=== PATIENT | male | born 1990 | race Caucasian/White ===

== ENCOUNTER 2017-06-04 09:06 | Emergency (ER) | payer BC ==
[2017-06-04 09:18] VITALS: BP 117/83
--- NOTE | 2017-06-04 09:45 | EDM.PDOC ---
ED HPI GENERAL MEDICAL PROBLEM - General Chief Complaint: Flank Pain Stated Complaint: KIDNEY PAIN Time Seen by Provider: 06/04/17 09:20 Source of Information: Reports: Patient, RN Notes Reviewed - History of Present Illness INITIAL COMMENTS - FREE TEXT/NARRATIVE: 27-year-old male comes in with left back pain. He's been having intermittent more mild discomfort off and on left back for about 6 months. This became quite intense last evening and early this morning. States at times he was getting "spasms. The pain stayed primarily in the left low back and also some radiation to the left flank. No radiation to the abdomen or groin. No nausea vomiting fever or chills. He's had no voiding symptoms. He does do a lot of lifting with his work. 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 Left Flank Pain Score (Numeric/FACES): 7 - Related Data Allergies Allergy/AdvReac Type Severity Reaction Status Date / Time No Known Allergies Allergy Verified 06/04/17 09:18 Home Meds: Home Meds . [No Known Home Meds] 06/04/17 [History] Cyclobenzaprine [Flexeril] 10 mg PO BEDTIME PRN #10 tablet 06/04/17 [Rx] Naproxen [Naprosyn] 500 mg PO Q12HR #14 tablet 06/04/17 [Rx] Past Medical History - Past Surgical History Other Musculoskeletal Surgeries/Procedures:: ACL right knee 1 year ago Social & Family History - Tobacco Use Smoking Status *Q: Current Every Day Smoker Years of Tobacco use: 5 Packs/Tins Daily: 0.5 Used Tobacco, but Quit: No Second Hand Smoke Exposure: No - Caffeine Use Caffeine Use: Reports: Coffee - Alcohol Use Days Per Week of Alcohol Use: 2 Number of Drinks Per Day: 8 Total Drinks Per Week: 16 - Recreational Drug Use Recreational Drug Use: No Drug Use in Last 12 Months: Yes Recreational Drug Type: Reports: Marijuana/Hashish Other Recreational Drug Type: marijuana use 3 weeks ago ED ROS GENERAL - Review of Systems Review Of Systems: See Below Constitutional: Denies: Fever, Chills, Diaphoresis HEENT: Reports: No Symptoms Respiratory: Denies: Shortness of Breath, Pleuritic Chest Pain Cardiovascular: Denies: Chest Pain GI/Abdominal: Denies: Abdominal Pain, Nausea, Vomiting : Reports: No Symptoms Musculoskeletal: Reports: Back Pain. Denies: Leg Pain (Left low back), Joint Pain Skin: Reports: No Symptoms Neurological: Denies: Numbness, Tingling ED EXAM, RENAL/ - Physical Exam Exam: See Below General Appearance: Alert, No Apparent Distress Throat/Mouth: Normal Inspection, Normal Oropharynx Head: Atraumatic Neck: Supple, Full Range of Motion Respiratory/Chest: No Respiratory Distress, Lungs Clear, Normal Breath Sounds Cardiovascular: Regular Rate, Rhythm Back Exam: Other (There is tenderness of the left low back). No: CVA Tenderness (L), CVA Tenderness (R) Extremities: Normal Inspection, Normal Range of Motion, Other (No pain with straight leg raising) Neurological: Alert, Oriented, No Motor/Sensory Deficits Skin Exam: Warm, Dry, Normal Color, No Rash Course - Vital Signs Last Recorded V/S: Last Vital Signs Temp 98.0 F 06/04/17 09:13 Pulse 97 06/04/17 09:13 Resp 18 06/04/17 09:13 BP 117/83 06/04/17 09:13 Pulse Ox 96 06/04/17 09:13 - Orders/Labs/Meds Labs: Laboratory Tests 06/04/17 Range/Units 09:25 Urine Color Yellow (Yellow) Urine Appearance Clear (Clear) Urine pH 6.0 (5.0-8.0) Ur Specific [place] 1.020 (1.005-1.030) Urine Protein Negative (Negative) Urine Glucose (UA) Negative (Negative) Urine Ketones Negative (Negative) Urine Occult Blood Negative (Negative) Urine Nitrite Negative (Negative) Urine Bilirubin Negative (Negative) Urine Urobilinogen 0.2 (0.2-1.0) Ur Leukocyte Esterase Negative (Negative) Urine RBC 0-5 (0-5) /hpf Urine WBC 0-5 (0-5) /hpf Ur Epithelial Cells 0-5 (0-5) /hpf Urine Bacteria Not seen (FEW) /hpf Urine Mucus Not seen (FEW) /hpf - Re-Assessments/Exams Free Text/Narrative Re-Assessment/Exam: 06/04/17 17:25 Urine came back negative for hematuria. The pain does not radiate to the left abdomen or groin, just to the left flank and left buttock area. Do feel this is musculoskeletal and not a kidney stone. Renal CT will not be done. Patient is comfortable with that. Also of note the back discomfort is worse with certain types of motion which also would strongly rule against this being a kidney stone. Departure - Departure Time of Disposition: 10:10 Disposition: Home, Self-Care 01 Condition: Fair Clinical Impression: Low back strain Qualifiers: Encounter type: initial encounter Qualified Code(s): S39.012A - Strain of muscle, fascia and tendon of lower back, initial encounter - Discharge Information Prescriptions: Naproxen [Naprosyn] 500 mg PO Q12HR #14 tablet Cyclobenzaprine [Flexeril] 10 mg PO BEDTIME PRN #10 tablet PRN Reason: Spasms Instructions: Low Back Strain With Rehab-SportsMed Referrals: PCP,None [Primary Care Provider] - Forms: ED Department Discharge Additional Instructions: Try avoid heavy lifting as best you can, Naprosyn 500 mg twice daily for pain and inflammation, you may take Tylenol in between doses if needed for extra pain relief, Flexeril which is a muscle relaxant at night if needed for severe discomfort or spasms, follow-up clinic as needed if symptoms not resolving, return to ED if symptoms worsening in any way
== END 2017-06-04 10:25 | disposition home or self-care (01) ==
LOC: JD.ED 09:06
DX: S39.012A Strain of muscle, fascia and tendon of lower back, initial encounter (principal); F17.210 Nicotine dependence, cigarettes, uncomplicated; Z98.890 Other specified postprocedural states; X50.9XXA Other and unspecified overexertion or strenuous movements or postures, initial encounter; Y92.65 Oil rig as the place of occurrence of the external cause
CPT/HCPCS: 81001; 99283; 99284

== ENCOUNTER 2020-05-23 21:15 | Emergency (ER) | payer SELFPAY ==
[2020-05-23 21:34] VITALS: BP 119/74; PULSE 112
[2020-05-23] MEDS ORDERED: Alum Hydrox/Mag Hydrox/Simeth 30 ML, Lidocaine 2% 15 ML PO ONE ×4 (21:56→22:44)
[2020-05-23] MEDS ORDERED: Metoclopramide 10 MG/2 ML SDV IVPUSH ONE (22:43)
[2020-05-23] MEDS ORDERED: HYDROmorphone 1 MG/ML Syringe IVPUSH ONE (22:43)
[2020-05-23] MEDS ORDERED: Dextrose 5%-0.9% NaCl 1,000 ML IV SCH (22:45)
--- NOTE | 2020-05-23 22:45 | EDM.PDOC ---
ED HPI GENERAL MEDICAL PROBLEM - General Chief Complaint: Abdominal Pain Stated Complaint: STOMACH PAINS Time Seen by Provider: 05/23/20 22:42 Source of Information: Reports: Patient History Limitations: Reports: No Limitations - History of Present Illness INITIAL COMMENTS - FREE TEXT/NARRATIVE: 30-year-old male presents to the ED with epigastric abdominal pain with no radiation into the back. History suggest that he uses alcohol on a daily basis. He drinks fairly heavily on the weekend a Wednesday and Wednesday night while partying in [place]. On WednesdayMay 19 he developed epigastric abdominal pain that worsened over the ensuing 2 days to the point that on May 21 he was essentially bedridden because of the pain. He states was a strong colicky component to the pain coming about every minute and a half with a wave of pain. On WednesdayMay 20 he was able to resume more or less a regular diet. Tonight however after drinking some shots of alcohol and eating a taco and a bag he developed acute exacerbation of epigastric abdominal pain with recurrence of nausea and vomiting of recently eaten meal. The vomiting that occurred on Wednesday and Wednesday of this week was bilious without any blood. On firm questioning he reports that his stool on May 23 was dark and black and foul-smelling. He denies feeling lightheaded dizzy etc. Perhaps mildly nauseated but the abdominal pain is the reason he came to the ED. He has no history of pancreatitis. Onset: Gradual Onset Date: 05/19/20 (Initially onset of abdominal pain in the epigastrium was on the evening of May 19.) Duration: Day(s):, Colic (There is a colicky component to the pain.), Constant, Getting Worse Location: Reports: Abdomen (Epigastrium and perhaps). Denies: Radiates to ( left upper quadrant.) Quality: Reports: Ache, Other Severity: Moderate (Stent aching pain with intermittent colicky type pain. 7 out of 10.) Improves with: Reports: None Worsens with: Reports: Eating (Eating and drinking alcohol made it much worse tonight.) Context: Reports: Other (Daily heavy alcohol use). Denies: Activity, Exercise, Lifting, Sick Contact, Trauma Associated Symptoms: Reports: Loss of Appetite, Nausea/Vomiting, Other (Ported 1 black tarry stool.). 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 05/24/20 [Rx] Past Medical History - Past Surgical History Other Musculoskeletal Surgeries/Procedures:: ACL right knee 1 year ago Social & Family History - Tobacco Use Smoking Status *Q: Former Smoker Used Tobacco, but Quit: Yes Month/Year Tobacco Last Used: 2 weeks ago - Caffeine Use Caffeine Use: Reports: Soda - Recreational Drug Use Recreational Drug Use: No - Living Situation & Occupation Living situation: Reports: Single Occupation: Unemployed (Currently unemployed due to the COVID-19 virus. 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 Denies: Fever, Chills, Weakness, Fatigue HEENT: Reports: No Symptoms Respiratory: Reports: No Symptoms Cardiovascular: Reports: No Symptoms. Denies: Chest Pain, Blood Pressure Problem Endocrine: Reports: No Symptoms GI/Abdominal: Reports: Abdominal Pain (History of present illness.), Melena (Which 1 black tarry stool today.), Nausea, Vomiting (Is a vomiting intermittent basis for the last 4 days.) : Reports: No Symptoms Musculoskeletal: Reports: No Symptoms Skin: Reports: No Symptoms Neurological: Reports: No Symptoms Psychiatric: Reports: No Symptoms Hematologic/Lymphatic: Reports: No Symptoms Immunologic: Reports: No Symptoms ED EXAM, GI/ABD - Physical Exam Exam: See Below Exam Limited By: No Limitations General Appearance: Alert, WD/WN, No Apparent Distress, Other (Temperature is 36.7. Heart rate 112 and sinus. Respiratory is 20 with O2 sats of 97%. BP 119/74) Eyes: Bilateral: Normal Appearance (Blepharal pallor or scleral icterus.) Throat/Mouth: Normal Inspection, Normal Lips, Normal Oropharynx Head: Atraumatic, Normocephalic Neck: Normal Inspection, Supple, Non-Tender, Full Range of Motion. No: Lymphadenopathy (L), Lymphadenopathy (R) Respiratory/Chest: No Respiratory Distress, Lungs Clear, Normal Breath Sounds, No Accessory Muscle Use, Chest Non-Tender Cardiovascular: Normal Peripheral Pulses, Regular Rate, Rhythm, No Edema, No Murmur, No Rub, Tachycardia (Heart rate was 95 when I attended the patient. Initial nurses report was of tachycardia at 112/min.) GI/Abdominal Exam: Normal Bowel Sounds, No Organomegaly, No Distention, Tender, Other (No surgical scars.). No: Guarding (And is in the epigastrium on firm palpation.), Rigid, Rebound (Male) Exam: No Hernia Back Exam: Normal Inspection, Full Range of Motion. No: CVA Tenderness (L), CVA Tenderness (R) Extremities: Normal Inspection, Normal Range of Motion, Non-Tender, No Pedal Edema Neurological: Alert, Oriented, CN II-XII Intact, Normal Cognition, Normal Gait Psychiatric: Normal Affect, Normal Mood Skin Exam: Warm, Dry, Intact, Normal Color, No Rash Course - Vital Signs Last Recorded V/S: Last Vital Signs Temp 36.7 C 05/23/20 21:31 Pulse 112 H 05/23/20 21:31 Resp 20 05/23/20 21:31 BP 119/74 05/23/20 21:31 Pulse Ox 96 05/23/20 21:31 - Orders/Labs/Meds Labs: Laboratory Tests 05/23/20 05/23/20 05/23/20 Range/Units 22:57 22:57 22:57 WBC 7.17 (4.23-9.07) K/mm3 RBC 4.34 L (4.63-6.08) M/mm3 Hgb 14.3 (13.7-17.5) gm/dl Hct 43.4 (40.1-51.0) % MCV 100.0 H (79.0-92.2) fl MCH 32.9 H (25.7-32.2) pg MCHC 32.9 (32.2-35.5) g/dl RDW Std Deviation 49.3 H (35.1-43.9) fL Plt Count 356 H (163-337) K/mm3 MPV 8.7 L (9.4-12.3) fl Neut % (Auto) 61.3 (34.0-67.9) % Lymph % (Auto) 22.6 (21.8-53.1) % [place] % (Auto) 12.0 (5.3-12.2) % Eos % (Auto) 2.6 (0.8-7.0) Baso % (Auto) 0.8 (0.1-1.2) % Neut # (Auto) 4.39 (1.78-5.38) K/mm3 Lymph # (Auto) 1.62 (1.32-3.57) K/mm3 [place] # (Auto) 0.86 H (0.30-0.82) K/mm3 Eos # (Auto) 0.19 (0.04-0.54) K/mm3 Baso # (Auto) 0.06 (0.01-0.08) K/mm3 PT 9.6 L (9.7-12.0) SECONDS INR < 0.93 APTT 27 (22-31) SECONDS Sodium 145 (136-145) mEq/L Potassium 4.1 (3.5-5.1) mEq/L Chloride 109 H (98-107) mEq/L Carbon Dioxide 22 (21-32) mEq/L Anion Gap 18.1 H (5-15) BUN 14 (7-18) mg/dL Creatinine 1.2 (0.7-1.3) mg/dL Est Cr Clr Drug Dosing 98.17 mL/min Estimated GFR (MDRD) > 60 (>60) mL/min BUN/Creatinine Ratio 11.7 L (14-18) Glucose 99 (74-106) mg/dL Calcium 8.5 (8.5-10.1) mg/dL Total Bilirubin 0.1 L (0.2-1.0) mg/dL AST 23 (15-37) U/L ALT 38 (16-63) U/L Alkaline Phosphatase 129 H (46-116) U/L Total Protein 7.3 (6.4-8.2) g/dl Albumin 3.9 (3.4-5.0) g/dl Globulin 3.4 gm/dL Albumin/Globulin Ratio 1.2 (1-2) Lipase 170 (73-393) U/L Meds: Medications Discontinued Medications Generic Name Dose Route Start Last Admin Trade Name Xiang PRN Reason Stop Dose Admin Al Hydroxide/Mg Hydroxide 30 0 ml 05/23/20 21:56 05/23/20 22:04 ml/ Lidocaine HCl 15 ml PO 05/23/20 21:57 45 ml ONETIME ONE Administration Al Hydroxide/Mg Hydroxide 30 0 ml 05/23/20 22:44 ml/ Lidocaine HCl 15 ml PO 05/23/20 22:45 ONETIME ONE Dicyclomine HCl 20 mg 05/24/20 00:12 05/24/20 00:15 Bentyl PO 05/24/20 00:13 20 mg ONETIME ONE Administration Hydromorphone HCl 1 mg 05/23/20 22:43 05/23/20 23:01 Dilaudid IVPUSH 05/23/20 22:44 1 mg ONETIME ONE Administration Dextrose/Sodium Chloride 1,000 mls @ 999 mls/hr 05/23/20 22:45 05/23/20 22:57 Dextrose 5%-Normal Saline IV 999 mls/hr ASDIRECTED VANDA Administration Metoclopramide HCl 10 mg 05/23/20 22:43 05/23/20 22:58 Reglan IVPUSH 05/23/20 22:44 10 mg ONETIME ONE Administration Pantoprazole Sodium 80 mg 05/23/20 23:30 05/23/20 23:40 Protonix Iv IVPUSH 05/23/20 23:31 80 mg BOLUS ONE Administration - Radiology Interpretation Free Text/Narrative:: 30-year-old male presents to the ED with epigastric abdominal pain starting May 19. Patient was drinking alcohol quite heavily Wednesday and Wednesday and started to develop epigastric left upper quadrant abdominal pain on the evening of May 19. Pain worsened on Wednesday and was quite severe on Wednesday keeping him in bed. Today he was able to start eating solids again. Today after taking couple of shots of alcohol and eating a taco in a bag he developed worsening of his epigastric abdominal pain. He reports one stool that was dark black and tarry in nature today. No history of GI bleeding. He has nausea and vomiting over the weekend and Wednesday and Wednesday did not contain any blood. He drinks alcohol on a daily basis. He has no known history of pancreatitis. Denies any pain in his back at present. No fever or chills. Feels mildly weak. Examination reveals tenderness in the epigastrium but no peritoneal signs. Plan routine labs to be done. Pancreatitis versus peptic ulcer disease/gastritis from chronic alcohol use. He was given a GI cocktail. It did provide him with some relief of the discomfort. He will be given Reglan 10 mg IV with Dilaudid 1 mg IV for pain relief. Labs to be collected including serum lipase. - Re-Assessments/Exams Free Text/Narrative Re-Assessment/Exam: 05/23/20 23:29 White count is normal at 7.17. Hemoglobin is 14.3 with hematocrit of 43.4. MCV is elevated at 100.0 suggesting chronic alcohol use. Platelet counts 356,000.Chemistry is pending. 05/23/20 23:54 Chemistry reveals a sodium of 145 and a potassium of 4.1. Chloride is 109 with a bicarb of 22. Anion gap is elevated at 18.1. BUN is 14 with a creatinine of 1.2. GFR is greater than 60. Glucose is 99 with a calcium of 8.5. Liver function is normal other than slightly elevated alk phosphatase at 129. Total protein is 7.3 with an albumin fraction of 3.9. Serum lipase is normal at 170. Patient reports feeling better after pain medication and antinausea medication. Clinically he has signs and symptoms of peptic ulcer disease likely in the duodenum with suspect upper GI bleed with black tarry stool reported x1. He is clinically stable with a hemoglobin in the normal range at 14.3. Patient advised that because of ulceration in the stomach is likely due to alcohol consumption on a daily basis. He admits that when he has been laid off he has been drinking more heavily. Patient has received Protonix 80 mg IV while in the department. He will be started on Prilosec 20 mg twice daily for the next 2 weeks then once daily at bedtime for another month. Bentyl 20 mg tablet every 6 hours as needed for relief of abdominal pain. He is advised of course to try and refrain from alcohol use for the next week or more to allow peptic ulcer to heal. Return to medical care if is melena stool last longer than another 24 to 36 hours. He is to refrain from spicy foods and take a more bland diet over the next week. Departure - Departure Time of Disposition: 00:03 Disposition: Home, Self-Care 01 Condition: Fair Clinical Impression: Epigastric abdominal pain, Peptic ulcer disease - Discharge Information *PRESCRIPTION DRUG MONITORING PROGRAM REVIEWED*: Not Applicable *COPY OF PRESCRIPTION DRUG MONITORING REPORT IN PATIENT DEVEN: Not Applicable Prescriptions: Dicyclomine [Bentyl] 20 mg PO Q6H PRN #12 tablet PRN Reason: Abdominal cramps/diarrhea Omeprazole Magnesium [Prilosec Otc] 20 mg PO ASDIRECTED #42 tablet. Instructions: Peptic Ulcer Referrals: PCP,None [Primary Care Provider] - Forms: ED Department Discharge Additional Instructions: Evaluation in the emergency room tonight in regards to persistent and recurrent epigastric abdominal pain associated with nausea and vomiting particular aggravated by eating and alcohol intake. Lab test tonight do not reveal any evidence of inflammation of your pancreas or pancreatitis. Therefore the history suggests inflammation of the lining of the stomach in the first part of the small bowel recall gastritis and/or peptic ulcer disease. The history of a black tarry stool today suggest that you had a bleeding ulcer from the lining of the stomach or first part of the small bowel within the last few days to make the stool black in color. Expect the stool to remain black in color for at least another day to 2 days and then should return to normal color. Inflammation of the stomach appears to be likely due to alcohol use. Suggest cutting back on alcohol use and avoiding hard alcohol such as whiskey, vodka, tequila etc. Suggest use of anti-inflammatory medication to treat ulcer with Prilosec 20 mg twice daily for the next 2 weeks then 1 tablet at bedtime for another month to ensure that peptic ulcer heals. [place] diet without any spicy foods for the next 3 days. After that usually you can return to normal diet. May use Bentyl 20 mg every 6 hours as needed for relief of abdominal pain for the next 2 to 3 days until Prilosec becomes effective in reducing inflammation of the stomach. You were given a dose of anti-inflammatory medication called Protonix in the emergency room intravenously. You will not need to start Prilosec until tomorrow morning. Of note this medication is now [id number] and is cheaper at [facility] in any other place in town. Sepsis Event Note (ED) - Evaluation Sepsis Screening Result: No Definite Risk - Focused Exam Vital Signs: Vital Signs Temp Pulse Resp BP Pulse Ox 05/23/20 21:31 36.7 C 112 H 20 119/74 96
[2020-05-23] MEDS ORDERED: Pantoprazole 40 MG Vial IVPUSH ONE (23:30)
[2020-05-24] MEDS ORDERED: Dicyclomine 10 MG Cap PO ONE (00:12)
== END 2020-05-24 00:18 | disposition home or self-care (01) ==
LOC: JD.ED 21:15
DX: K27.9 Peptic ulcer, site unspecified, unspecified as acute or chronic, without hemorrhage or perforation (principal); Z87.891 Personal history of nicotine dependence
CPT/HCPCS: 36415; 80053; 83690; 85025; 85610; 85730; 96361; 96374; 96375; 99284; A9270; C9113; J1170; J2765; J7042